=== PATIENT | male | born 1955 | race American Indian/Alaskan Native ===

== ENCOUNTER 2018-10-16 23:24 | Emergency (ER) | payer SELFPAY ==
[2018-10-17 00:15] LABS: Basophils % (Auto) 0.4 % (0.0-1.8); Eosinophils # (Auto) 0.1 K/mm3 (0.0-0.4); Eosinophils % (Auto) 1.2 % (0.0-4.3); Hematocrit 33.2 % (35.5-45.6); Hemoglobin 10.9 gm/dl (11.8-15.2); Lymphocytes # (Auto) 1.2 K/mm3 (1.2-5.4); Lymphocytes % (Auto) 12.5 % (13.4-35.0); Mean Corpuscular HGB Conc 33 % (32-34); Mean Corpuscular Volume 94 fl (84-94); Monocytes # (Auto) 1.2 K/mm3 (0.0-0.8); Monocytes % (Auto) 11.6 % (0.0-7.3); Platelet Count 281 K/mm3 (140-440); Red Blood Count 3.55 M/mm3 (3.65-5.03); Red Cell Distribution Width 15.5 % (13.2-15.2)
[2018-10-17 00:28] LABS: Alanine Aminotransferase 23 units/L (7-56); Albumin 3.6 g/dL (3.9-5); BUN/Creatinine Ratio 21; Blood Urea Nitrogen 25 mg/dL (9-20); Calcium 9.2 mg/dL (8.4-10.2); Hemolysis Index 6
[2018-10-17] MEDS ORDERED: NACL 0.9% 500 ML 500 ML IV ONE (01:04)
[2018-10-17] MEDS ORDERED: APRESOLINE IV ONE (01:04)
[2018-10-17] MEDS ORDERED: NORVASC PO ONE (01:05)
[2018-10-17] MEDS ORDERED: COREG PO ONE (01:05)
[2018-10-17] MEDS ORDERED: TYLENOL PO ONE (01:18)
--- NOTE | 2018-10-17 01:19 | Emergency Department Report ---
ED General Adult HPI - General Chief complaint: Urogenital-Male Stated complaint: ABDOMINAL PAIN/BLOOD IN CATHETHER Time Seen by Provider: 10/16/18 23:54 Source: patient, EMS (EMS notes not available at the time of this charts dictation), RN notes reviewed, old records reviewed Mode of arrival: Stretcher Limitations: Physical Limitation, Other (the patient is a poor historian) - History of Present Illness Initial comments: This is a 63-year-old gentleman. The patient is not known to this provider previously. The patient apparently does not have a local primary care doctor. The patient has a past medical history of hypertension, on multiple medications, including hydralazine, Coreg, amlodipine, also has a history of BPH, and indwelling Rivero catheter Patient recently admitted to [facility], where he was apparently found to have a bladder outlet obstruction, post to follow-up with outpatient urology but never did, also found to have hypertension, and is also previously documented to be a poor historian. As per review of old medical records, patient presented with cystitis and hematuria, a catheter in place recommended by urology, failed to follow up with Dr. Rodriguez, outpatient urology, found to have suspected bladder outlet obstruction, known history of BPH, also found to have hypertension and hyperkalemia Also has a past medical history of ichthyosis, normocytic anemia Aches, the patient is sent to the ER for evaluation of hypertension and reported fever. The patient does not have any recollection of any of this. His only complaint is chronic bilateral dorsal foot pain. The patient denies headache, neck pain, chest pain, abdominal pain, shortness of breath. He denies penile pain. He denies discharge from his lower extremities. The patient is a very poor historian. Reportedly, he is also having bloody discharge from his Rivero catheter, and penile discharge. Patient not able to describe exacerbating or relieving factors to his chronic lower extremity pain. He indicates it does not radiate anywhere. He is not sure how long its been there for. He also has a history of chronic abdominal wall hernia. Radiation: other Quality: other Consistency: other Improves with: other Worsens with: other - Related Data Previous Rx's Medication Instructions Recorded Last Taken Type levoFLOXacin [Levaquin TAB] 500 mg PO QDAY #7 tablet 10/17/18 Unknown Rx Allergies Allergy/AdvReac Type Severity Reaction Status Date / Time Penicillins Allergy Unknown Verified 10/16/18 23:39 ED Review of Systems ROS: Stated complaint: ABDOMINAL PAIN/BLOOD IN CATHETHER Other details as noted in HPI Constitutional: fever (triage note documents the presence of fever prior to arrival) Eyes: denies: eye discharge ENT: denies: epistaxis Respiratory: denies: cough Cardiovascular: denies: chest pain Gastrointestinal: denies: abdominal pain Genitourinary: other (indwelling Rivero catheter, BPH, question blood) Musculoskeletal: other (chronic lower extremity pain) Skin: rash (lower extremity ichthyosis) Neurological: other (patient is a poor historian) ED Past Medical Hx - Past Medical History Previous Medical History?: Yes Hx Hypertension: Yes Additional medical history: Hernia - Surgical History Past Surgical History?: Yes Additional Surgical History: Hernia sx 2016, possible MRSA - Social History Smoking Status: Never Smoker Substance Use Type: Prescribed - Medications Home Medications: Home Medications Medication Instructions Recorded Confirmed Last Taken Type levoFLOXacin [Levaquin TAB] 500 mg PO QDAY #7 tablet 10/17/18 Unknown Rx ED Physical Exam - General Limitations: Other (the patient is a poor historian) General appearance: alert, in no apparent distress - Head Head exam: Present: atraumatic, normocephalic - Eye Eye exam: Present: normal appearance. Absent: nystagmus - ENT ENT exam: Present: normal exam, normal orophraynx, mucous membranes moist, normal external ear exam - Neck Neck exam: Present: normal inspection, full ROM. Absent: tenderness, meningismus - Respiratory Respiratory exam: Present: normal lung sounds bilaterally. Absent: respiratory distress - Cardiovascular Cardiovascular Exam: Present: regular rate, normal rhythm, normal heart sounds. Absent: bradycardia, tachycardia, irregular rhythm, systolic murmur, diastolic murmur, rubs, gallop - GI/Abdominal GI/Abdominal exam: Present: soft, normal bowel sounds, hernia, other (there is a large anterior abdominal wall hernia, nontender, easily reducible). Absent: distended, tenderness, guarding, rebound, rigid, pulsatile mass - Rectal Rectal exam: Present: normal inspection - exam: Present: normal inspection, other (there is a Rivero catheter in place draining clear yellow urine.) External exam: Present: normal external exam - Extremities Exam Extremities exam: Present: pedal edema, other (chronic ichthyosis noted. No discharge is noted.). Absent: normal inspection (there is no long bony tenderness. The compartments are soft. The pelvis is stable. 2+ pulses noted in the bilateral upper, lower extremities.), calf tenderness - Back Exam Back exam: Present: normal inspection. Absent: tenderness, CVA tenderness (R), CVA tenderness (L), paraspinal tenderness, vertebral tenderness - Neurological Exam Neurological exam: Present: alert, oriented X3, other (there is no facial droop. The tongue is midline. Extraocular movements are intact bilaterally. There is 5 out of 5 strength in the bilateral upper, lower extremities. Sensation is intact to light touch in the bilateral upper, lower extremities.). Absent: mo tor sensory deficit - Psychiatric Psychiatric exam: Present: normal affect, normal mood - Skin Skin exam: Present: warm, dry, intact, normal color. Absent: rash ED Course Vital Signs 10/16/18 10/16/18 10/17/18 23:39 23:45 00:00 Temperature 98.6 F Pulse Rate 99 H 115 H 98 H Respiratory 26 H 19 23 Rate Blood Pressure 218/105 218/105 225/96 Blood Pressure [Left] O2 Sat by Pulse 95 97 91 Oximetry 10/17/18 10/17/18 10/17/18 00:15 00:30 01:53 Temperature Pulse Rate 101 H 105 H Respiratory 28 H 14 Rate Blood Pressure 225/96 225/96 225/96 Blood Pressure [Left] O2 Sat by Pulse 98 96 Oximetry 10/17/18 10/17/18 10/17/18 02:01 02:24 03:27 Temperature 98 F Pulse Rate 109 H 86 88 Respiratory 16 18 Rate Blood Pressure 208/141 187/86 Blood Pressure 138/70 [Left] O2 Sat by Pulse 98 98 Oximetry - Reevaluation(s) Reevaluation #1: 10/17/18 02:00 Differential diagnosis, including but not limited to: Pneumonia, urinary tract infection, hypertension, medication noncompliance, chronic musculoskeletal extremity pain Assessment and plan: 63-year-old gentleman, recently admitted to [facility], discharge summary is reviewed, he is discharged with Keflex, even though he has a reported penicillin allergy. The patient is not sure what his allergy is. He doesn't really know if he has an allergy. Apparently, the patient was supposed to be on Keflex 500 mg 3 times daily, for 7 days The patient is hypertensive, which appears to be a chronic finding. He is alert to name, month, location, and he has a nonfocal motor examination. He doesn't have any acute complaints, and has chronic lower extremity discomfort. His lower extremities do not appear to be superinfected. Rivero catheter is in place draining clear yellow urine. CT scan of the abdomen and pelvis is ordered, screening laboratory studies reviewed and appreciated, urinalysis is pending. We will give the patient his antihypertensive therapy, repeat vital signs child, check a urinalysis, and reassess. Reevaluation #2: 10/17/18 02:54 CT scan is reviewed and appreciated. Suggests malposition of Rivero catheter balloon within the prostate. The balloon is fully deflated, and then the Rivero catheter is advanced into the bladder, and the balloon was reinflated. Rivero catheter is draining easily. Patient will be started empirically on antibiotics, and he'll need to follow up with his outpatient urologist. Blood pressure improved, tachycardia improved, patient resting comfortably, in no acute distress. ED Medical Decision Making - Lab Data Result diagrams: 10/16/18 23:54 10/16/18 23:54 Vital Signs 10/16/18 23:39 Temperature 98.6 F Pulse Rate 99 H Respiratory 26 H Rate Blood Pressure 218/105 O2 Sat by Pulse 95 Oximetry Lab Results 10/16/18 10/16/18 10/17/18 Range/Units 23:54 23:54 00:00 WBC 10.0 (4.5-11.0) K/mm3 RBC 3.55 L (3.65-5.03) M/mm3 Hgb 10.9 L (11.8-15.2) gm/dl Hct 33.2 L (35.5-45.6) % MCV 94 (84-94) fl MCH 31 (28-32) pg MCHC 33 (32-34) % RDW 15.5 H (13.2-15.2) % Plt Count 281 (140-440) K/mm3 Lymph % (Auto) 12.5 L (13.4-35.0) % [place] % (Auto) 11.6 H (0.0-7.3) % Eos % (Auto) 1.2 (0.0-4.3) % Baso % (Auto) 0.4 (0.0-1.8) % Lymph # 1.2 (1.2-5.4) K/mm3 [place] # 1.2 H (0.0-0.8) K/mm3 Eos # 0.1 (0.0-0.4) K/mm3 Baso # 0.0 (0.0-0.1) K/mm3 Seg Neutrophils % 74.3 H (40.0-70.0) % Seg Neutrophils # 7.4 (1.8-7.7) K/mm3 Sodium 141 (137-145) mmol/L Potassium 4.4 (3.6-5.0) mmol/L Chloride 104.2 (98-107) mmol/L Carbon Dioxide 27 (22-30) mmol/L Anion Gap 14 mmol/L BUN 25 H (9-20) mg/dL Creatinine 1.2 (0.8-1.5) mg/dL Estimated GFR > 60 ml/min BUN/Creatinine Ratio 21 % Glucose 108 H (75-100) mg/dL Calcium 9.2 (8.4-10.2) mg/dL Magnesium 1.90 (1.7-2.3) mg/dL Total Bilirubin 0.30 (0.1-1.2) mg/dL AST 32 (5-40) units/L ALT 23 (7-56) units/L Alkaline Phosphatase 74 (35-129) units/L Total Creatine Kinase 215 H (55-170) units/L Albumin 3.6 L (3.9-5) g/dL Lab Results 10/16/18 10/16/18 10/17/18 Range/Units 23:54 23:54 00:00 WBC 10.0 (4.5-11.0) K/mm3 RBC 3.55 L (3.65-5.03) M/mm3 Hgb 10.9 L (11.8-15.2) gm/dl Hct 33.2 L (35.5-45.6) % MCV 94 (84-94) fl MCH 31 (28-32) pg MCHC 33 (32-34) % RDW 15.5 H (13.2-15.2) % Plt Count 281 (140-440) K/mm3 Lymph % (Auto) 12.5 L (13.4-35.0) % [place] % (Auto) 11.6 H (0.0-7.3) % Eos % (Auto) 1.2 (0.0-4.3) % Baso % (Auto) 0.4 (0.0-1.8) % Lymph # 1.2 (1.2-5.4) K/mm3 [place] # 1.2 H (0.0-0.8) K/mm3 Eos # 0.1 (0.0-0.4) K/mm3 Baso # 0.0 (0.0-0.1) K/mm3 Seg Neutrophils % 74.3 H (40.0-70.0) % Seg Neutrophils # 7.4 (1.8-7.7) K/mm3 Sodium 141 (137-145) mmol/L Potassium 4.4 (3.6-5.0) mmol/L Chloride 104.2 (98-107) mmol/L Carbon Dioxide 27 (22-30) mmol/L Anion Gap 14 mmol/L BUN 25 H (9-20) mg/dL Creatinine 1.2 (0.8-1.5) mg/dL Estimated GFR > 60 ml/min BUN/Creatinine Ratio 21 % Glucose 108 H (75-100) mg/dL Calcium 9.2 (8.4-10.2) mg/dL Magnesium 1.90 (1.7-2.3) mg/dL Total Bilirubin 0.30 (0.1-1.2) mg/dL AST 32 (5-40) units/L ALT 23 (7-56) units/L Alkaline Phosphatase 74 (35-129) units/L Total Creatine Kinase 215 H (55-170) units/L Total Protein 7.4 (6.3-8.2) g/dL Albumin 3.6 L (3.9-5) g/dL Albumin/Globulin Ratio 0.9 % Urine Color (Yellow) Urine Turbidity (Clear) Urine pH (5.0-7.0) Ur Specific Eldred (1.003-1.030) Urine Protein (Negative) mg/dL Urine Glucose (UA) (Negative) mg/dL Urine Ketones (Negative) mg/dL Urine Blood (Negative) Urine Nitrite (Negative) Urine Bilirubin (Negative) Urine Urobilinogen (<2.0) mg/dL Ur Leukocyte Esterase (Negative) Urine WBC (Auto) (0.0-6.0) /HPF Urine RBC (Auto) (0.0-6.0) /HPF 10/17/18 Range/Units 02:55 WBC (4.5-11.0) K/mm3 RBC (3.65-5.03) M/mm3 Hgb (11.8-15.2) gm/dl Hct (35.5-45.6) % MCV (84-94) fl MCH (28-32) pg MCHC (32-34) % RDW (13.2-15.2) % Plt Count (140-440) K/mm3 Lymph % (Auto) (13.4-35.0) % [place] % (Auto) (0.0-7.3) % Eos % (Auto) (0.0-4.3) % Baso % (Auto) (0.0-1.8) % Lymph # (1.2-5.4) K/mm3 [place] # (0.0-0.8) K/mm3 Eos # (0.0-0.4) K/mm3 Baso # (0.0-0.1) K/mm3 Seg Neutrophils % (40.0-70.0) % Seg Neutrophils # (1.8-7.7) K/mm3 Sodium (137-145) mmol/L Potassium (3.6-5.0) mmol/L Chloride (98-107) mmol/L Carbon Dioxide (22-30) mmol/L Anion Gap mmol/L BUN (9-20) mg/dL Creatinine (0.8-1.5) mg/dL Estimated GFR ml/min BUN/Creatinine Ratio % Glucose (75-100) mg/dL Calcium (8.4-10.2) mg/dL Magnesium (1.7-2.3) mg/dL Total Bilirubin (0.1-1.2) mg/dL AST (5-40) units/L ALT (7-56) units/L Alkaline Phosphatase (35-129) units/L Total Creatine Kinase (55-170) units/L Total Protein (6.3-8.2) g/dL Albumin (3.9-5) g/dL Albumin/Globulin Ratio % Urine Color Colorless (Yellow) Urine Turbidity Clear (Clear) Urine pH 8.0 H (5.0-7.0) Ur Specific Eldred 1.004 (1.003-1.030) Urine Protein <15 mg/dl (Negative) mg/dL Urine Glucose (UA) Neg (Negative) mg/dL Urine Ketones Neg (Negative) mg/dL Urine Blood Lg (Negative) Urine Nitrite Neg (Negative) Urine Bilirubin Neg (Negative) Urine Urobilinogen < 2.0 (<2.0) mg/dL Ur Leukocyte Esterase Tr (Negative) Urine WBC (Auto) 5.0 (0.0-6.0) /HPF Urine RBC (Auto) 135.0 (0.0-6.0) /HPF - Radiology Data Radiology results: pending, report reviewed, image reviewed X-ray of the chest is negative for acute disease Print Report Referring Physician: LLOI SORENSON Patient Name: LUCY BLANC Date of : 1955 Sex: Male Report Date: 2018-10-17 Report Status: [place] [address] Cat Scan Report Signed Patient: LUCY BLANC MR#: [id number] 2130 : 1955 Acct:[id number] Age/Sex: 63 / M ADM Date: 10/16/18 Loc: ED Attending Dr: Ordering Physician: LOLI SORENSON MD Date of Service: 10/17/18 Procedure(s): CT abdomen pelvis wo con Accession Number(s): [id number] cc: LOLI SORENSON MD CT of the abdomen and pelvis without contrast INDICATION: Fever COMPARISON: None FINDINGS: The liver, spleen, pancreas and adrenal glands show no gross abnormalities. There is mild to moderate bilateral hydronephrosis which appears symmetric. No kidney stones are seen. There are small gallstones without cholecystitis. No biliary tree dilation. No fluid or adenopathy in the upper abdomen. Large ventral hernia is seen with open abdominal wound. There is herniation of small bowel in the subcutaneous fat but no obstruction. CT of the pelvis shows a significantly enlarged prostate. The Rivero catheter is inflated within the prostate gland and has not reached the bladder. No definite gallbladder perforation is seen. There is moderately extensive bilateral inguinal adenopathy probably due to chronic inflammation. No pelvic adenopathy is seen.. No diverticulitis is seen. IMPRESSION: A Rivero catheter is inflated within the prostate gland and is not in the bladder. Other incidental findings as described. Automated exposure control was utilized to diminish radiation dose. Signer Name: Sandro Randolph MD Signed: 10/17/2018 2:21 AM Workstation Name: [id number] Transcribed By: NATY Dictated By: Sandro Randolph MD Electronically Authenticated By: Sandro Randolph MD Signed Date/Time: 10/17/18 0221 Critical care attestation.: If time is entered above; I have spent that time in minutes in the direct care of this critically ill patient, excluding procedure time. ED Disposition Clinical Impression: Chronic hypertension, Rivero catheter problem Disposition: - TO HOME OR SELFCARE Is pt being admited?: No Does the pt Need Aspirin: No Condition: Good Additional Instructions: Cultures were sent today, and results to be available in the next 3-5 days. Have your primary care doctor contact the medical records department to obtain the culture results. It is very important that the patient take his outpatient blood pressure medications on a regular and consistent basis. Not taking outpatient blood pressure medications may cause worsening blood pressure and hypertension, which over a mcc period of time may predispose the patient for stroke, heart attack, disability, loss of quality of life. Follow-up with your primary care doctor for hypertension within the next 4 weeks. Keep the Rivero catheter in place, and take the antibiotics as directed. Follow-up with your urology specialist, Dr. Rodriguez, within the next 5-7 days for outpatient evaluation. Not following up as recommended may results in kidney impairment, kidney failure, worsening infection, disability, or loss of quality of life. CT scan of the abdomen and pelvis today suggested in correct position and the Rivero catheter, and the prostate gland. Keep the Rivero catheter in place, and follow up with your urologist within the recommended timeframe for further evaluation. Please return to the emergency room right away with new, worsened or different symptoms, or symptoms not present on the initial emergency room evaluation. Prescriptions: levoFLOXacin [Levaquin TAB] 500 mg PO QDAY #7 tablet Referrals: MP RODRIGUEZ MD [Primary Care Provider] - 3-5 Days [facility] [Provider Group] - 3-5 Days
--- NOTE | 2018-10-17 01:35 | XRay Report ---
CHEST 1 VIEW INDICATION / CLINICAL INFORMATION: hx of fever and weak. COMPARISON: None available. FINDINGS: SUPPORT DEVICES: None. HEART / MEDIASTINUM: No significant abnormality. LUNGS / PLEURA: No significant pulmonary or pleural abnormality. No pneumothorax. ADDITIONAL FINDINGS: No significant additional findings. IMPRESSION: 1. No significant change Signer Name: Sandro Randolph MD Signed: 10/17/2018 1:30 AM Workstation Name: [id number]
--- NOTE | 2018-10-17 02:26 | Cat Scan Report ---
CT of the abdomen and pelvis without contrast INDICATION: Fever COMPARISON: None FINDINGS: The liver, spleen, pancreas and adrenal glands show no gross abnormalities. There is mild t o moderate bilateral hydronephrosis which appears symmetric. No kidney stones are seen. There are sma ll gallstones without cholecystitis. No biliary tree dilation. No fluid or adenopathy in the upper ab domen. Large ventral hernia is seen with open abdominal wound. There is herniation of small bowel in the subcutaneous fat but no obstruction. CT of the pelvis shows a significantly enlarged prostate. The Rivero catheter is inflated within the p rostate gland and has not reached the bladder. No definite gallbladder perforation is seen. There is moderately extensive bilateral inguinal adenopathy probably due to chronic inflammation. No pelvic ad enopathy is seen.. No diverticulitis is seen. IMPRESSION: A Rivero catheter is inflated within the prostate gland and is not in the bladder. Other i ncidental findings as described. Automated exposure control was utilized to diminish radiation dose. Signer Name: Sandro Randolph MD Signed: 10/17/2018 2:21 AM Workstation Name: [id number]
[2018-10-17 03:27] VITALS: BP 138/70
[2018-10-17 03:55] LABS: Bilirubin,Urine NEG (Negative); Blood,Urine LG (Negative); Color,Urine Colorless (Yellow); Protein,Urine <15 mg/dL mg/dL (Negative); Urobilinogen,Urine < 2.0 mg/dL (<2.0)
== END 2018-10-17 04:00 | disposition home or self-care (01) ==
LOC: ED 23:24
DX: T83.091A Other mechanical complication of indwelling urethral catheter, initial encounter (principal); I10 Essential (primary) hypertension; Z79.899 Other long term (current) drug therapy; Z88.1 Allergy status to other antibiotic agents; Y84.6 Urinary catheterization as the cause of abnormal reaction of the patient, or of later complication, without mention of misadventure at the time of the procedure; Y92.89 Other specified places as the place of occurrence of the external cause
CPT/HCPCS: 36415; 51702; 71045; 74176; 80053; 81001; 82550; 83735; 85025; 87076; 87086; 87186; 96374; 99285; J0360; J7040

== ENCOUNTER 2019-11-10 22:35 | Emergency (ER) | payer SELFPAY ==
[2019-11-11 03:53] VITALS: BP 203/94
[2019-11-11 04:39] LABS: Basophils % (Auto) 0.5 % (0.0-1.8); Eosinophils # (Auto) 0.1 K/mm3 (0.0-0.4); Eosinophils % (Auto) 2.8 % (0.0-4.3); Hematocrit 34.5 % (35.5-45.6); Hemoglobin 11.6 gm/dl (11.8-15.2); Lymphocytes # (Auto) 1.5 K/mm3 (1.2-5.4); Lymphocytes % (Auto) 27.7 % (13.4-35.0); Mean Corpuscular HGB Conc 34 % (32-34); Mean Corpuscular Volume 93 fl (84-94); Monocytes # (Auto) 0.6 K/mm3 (0.0-0.8); Monocytes % (Auto) 11.1 % (0.0-7.3); Platelet Count 194 K/mm3 (140-440); Red Cell Distribution Width 15.1 % (13.2-15.2)
--- NOTE | 2019-11-11 04:57 | XRay Report ---
CHEST 1 VIEW INDICATION: swelling. COMPARISON: 10/17/2018. FINDINGS: Support devices: None. Heart: Mild cardiomegaly. Lungs/Pleura: No acute air space or interstitial disease. Additional findings: None. IMPRESSION: Mild cardiomegaly. Signer Name: Jose Armando Bhatt MD Signed: 11/11/2019 4:52 AM Workstation Name: [id number]
[2019-11-11 05:02] LABS: Albumin 4.2 g/dL (3.9-5); Calcium 9.4 mg/dL (8.4-10.2)
--- NOTE | 2019-11-11 07:32 | Vascular Lab Report ---
DUPLEX DOPPLER LOWER EXTREMITY VEINS, BILATERAL INDICATION: swelling to lower legs. TECHNIQUE: Duplex doppler imaging was performed through the veins of both lower extremities using venous marylu ralph and other maneuvers. COMPARISON: None available. FINDINGS: Right Common femoral vein: Mild chronic DVT. Right Superficial femoral vein: Mild chronic DVT. Right Popliteal vein: Mild chronic DVT. Right Calf veins: Negative. Left Common femoral vein: Mild chronic DVT. Left Superficial femoral vein: Mild chronic DVT. Left Popliteal vein: Mild chronic DVT. Left Calf veins: Negative. Additional findings: Bilateral calf edema. IMPRESSION: 1. Mild chronic DVT bilaterally. 2. Negative for acute thrombosis. Signer Name: Jose Armando Bhatt MD Signed: 11/11/2019 7:28 AM Workstation Name: [id number]
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
== END 2019-11-11 12:50 | disposition home or self-care (01) ==
LOC: ED 22:35
DX: I11.0 Hypertensive heart disease with heart failure (principal); I50.9 Heart failure, unspecified; Z98.890 Other specified postprocedural states; Z88.0 Allergy status to penicillin
CPT/HCPCS: 36415; 71045; 80053; 83880; 85025; 93970